=== PATIENT | female | born 1990 | race Asian ===

== ENCOUNTER 2016-09-02 05:42 | Day surgery (SDC) | payer OTHER ==
[~2016-09-02] VITALS: Ht 147.3 cm; Wt 62.6 kg
[2016-09-02 06:06] VITALS: BP 111/70
[2016-09-02 08:50] VITALS: BP 106/68
[2016-09-02 09:54] VITALS: BP 105/62
[2016-09-02 11:25] VITALS: BP 102/64
== END 2016-09-02 11:28 | disposition home or self-care (01) ==
LOC: SDC 05:42
PROC: 10D17ZZ Extraction of Products of Conception, Retained, Via Natural or Artificial Opening (ICD-10-PCS; principal; 2016-09-02)
DX: O03.4 Incomplete spontaneous abortion without complication (principal); G43.909 Migraine, unspecified, not intractable, without status migrainosus; Z72.0 Tobacco use; Z87.898 Personal history of other specified conditions
CPT/HCPCS: 86900; 86901; 88305; J0131; J0690; J1100; J1885; J2250; J2270; J2405; J3010

== ENCOUNTER 2016-09-04 23:23 | Emergency (ER) | payer OTHER ==
[~2016-09-04] VITALS: Ht 147.3 cm; Wt 62.6 kg
[2016-09-05 00:16] LABS: CHLORIDE 107 mEq/L (99-109); POTASSIUM 4.2 mEq/L (3.7-5.4); SODIUM 139 mEq/L (136-147)
[2016-09-05 00:18] LABS: GLUCOSE 88 mg/dL (70-99)
[2016-09-05 00:19] LABS: ANION GAP 9 MEQ/L (2-14)
[2016-09-05 00:20] LABS: TOTAL BILIRUBIN 0.2 mg/dL (0.0-1.0)
[2016-09-05 00:22] LABS: ALKALINE PHOSPHATASE 49 IU/L (3-129); GFR ESTIMATE (CALCULATED) > 59 mL/min/
[2016-09-05 00:23] LABS: UREA NITROGEN (BUN) 8 mg/dL (9-23)
[2016-09-05 01:12] LABS: ADD MIUA? YES; BILIRUBIN NEGATIVE; BLOOD LARGE; COLOR YELLOW ((YELLOW)); GLUCOSE (STRIP) NEGATIVE; KETONES NEGATIVE; LEUKOCYTES NEGATIVE; NITRITE NEGATIVE; PROTEIN (STRIP) NEGATIVE; SPECIFIC GRAVITY 1.006 (1.000-1.030); UROBILINOGEN 0.2 MG/DL (0.2-1.0)
[2016-09-05 01:13] LABS: HEMATOCRIT 35.9 % (36.0-46.0); MCH 29.1 PG (29.0-34.0); MCHC 33.7 G/DL (30.0-36.0); MCV 86.3 FL (83-99); MEAN PLAT.VOLUME 10.2 uM^3 (9.5-12.4); PLATELET COUNT 207 K/uL (156-360); RBC DIS.WIDTH-CV 12.8 % (11.8-14.6); RED BLOOD COUNT 4.16 M/uL (3.80-5.20); WHITE BLOOD COUNT 9.1 K/uL (4.1-10.2)
[2016-09-05 01:44] LABS: BACTERIA NONE SEEN /HPF; EPITHELIAL CELLS 1+ /HPF; MUCUS TRACE /LPF; UCUL ADDED? NO; WHITE BLOOD CELLS 0-5 /HPF (0-5)
[2016-09-05] MEDS ORDERED: ZOFRAN ODT4 MG PO (05:07)
[2016-09-05 05:55] VITALS: BP 123/94
== END 2016-09-05 05:57 | disposition home or self-care (01) ==
LOC: EME 23:23
DX: R11.2 Nausea with vomiting, unspecified (principal); R10.2 Pelvic and perineal pain; J45.909 Unspecified asthma, uncomplicated; F17.200 Nicotine dependence, unspecified, uncomplicated
CPT/HCPCS: 76856; 80053; 81003; 84702; 85027; 99281; 99285; J1885; J2270; J2405; J7030